=== PATIENT | female | born 1970 | race Caucasian/White ===

== ENCOUNTER 2017-10-11 11:55 | Inpatient (IN) | payer OTHER ==
[~2017-10-11] VITALS: Ht 167.6 cm; Wt 63.3 kg
[2017-10-11 12:00] VITALS: Ht 167.6 cm; Wt 63.3 kg
[2017-10-11] MEDS ORDERED: SOD CHLORIDE 0.9% 1,000 ML IV STA (12:48)
[2017-10-11 13:35] LABS: ABNORMAL IP MESSAGE 1; HEMATOCRIT 20.4 % (37.0-47.0); MEAN CORPUSCULAR HEMOGLOBIN 31.4 pg (29.0-33.0); MEAN CORPUSCULAR HGB CONC 31.9 g/dl (32.0-37.0); MEAN CORPUSCULAR VOLUME 98.6 fl (82.0-101.0); MEAN PLATELET VOLUME 9.6 fl (7.4-10.4); PLATELET COUNT 363 10^3/UL (140-415); RED BLOOD COUNT 2.07 10^6/ul (4.20-5.40); RED CELL DISTRIBUTION WIDTH 15.8 % (11.5-14.5); WHITE BLOOD COUNT 8.1 10^3/ul (4.8-10.8)
[2017-10-11 13:39] LABS: HEMOGLOBIN 6.5 g/dl (12.0-16.0); POSITIVE DIFF @See below
[2017-10-11 13:40] LABS: PATH REVIEW? YES
[2017-10-11 13:44] LABS: ADD UMIC YES; UR ASCORBIC ACID NEGATIVE (NEGATIVE); UR BACTERIA FEW /HPF (NONE SEEN); UR BILIRUBIN (Dip) NEGATIVE (NEGATIVE); UR BLOOD (Dip) 3+ mg/dL (NEGATIVE); UR CLARITY SLIGHTLY CLOUDY (CLEAR); UR COLOR YELLOW (YELLOW); UR GLUCOSE (Dip) NEGATIVE (NEGATIVE); UR KETONES (Dip) 1+ mg/dL (NEGATIVE); UR LEUKOCYTE ESTERASE (Dip) NEGATIVE Leu/ul (NEGATIVE); UR MUCUS FEW /HPF (NONE SEEN); UR NITRITE (Dip) NEGATIVE (NEGATIVE); UR RBC > 182 /HPF (0-5); UR SPECIFIC GRAVITY (Dip) 1.009 (1.003-1.030); UR SQUAMOUS EPITHELIAL CELL FEW /HPF (FEW); UR TOTAL PROTEIN (Dip) NEGATIVE (NEGATIVE); UR UROBILINOGEN (Dip) NEGATIVE (NEGATIVE)
--- NOTE | 2017-10-11 13:56 | RADRPT ---
PROCEDURE: US Pelvis. CLINICAL INDICATION: Vaginal bleeding. TECHNIQUE: The pelvis was evaluated with transabdominal and transvaginal sonography in the axial a nd sagittal planes. COMPARISON: None. FINDINGS: The uterus measures 11.3 x 7.8 x 8.8 cm. There is a heterogeneous mass in the region of the endometr ial canal measuring 6.4 x 6.3 x 4.6 cm in cranial caudal, AP, and transverse dimensions. There is no other uterine mass. There is no normal endometrium visualized. The ovaries are not visualized. Ther e is no other pelvic mass. A small amount of free fluid is present in the cul-de-sac. IMPRESSION: 1. Enlarged uterus with a large mass centrally. The mass may be due to a large fibroid or an endome trial neoplastic mass. Correlation with MRI of the pelvis should be considered. 2. Endometrium and ovaries not visualized. 3. Small amount of free fluid which may be physiologic. RPTAT: QQ .Marcin Horner MD, MD Date Time Electronically viewed and signed by .Marcin Horner MD, on 10/11/2017 13:56 .R/
[2017-10-11 14:21] LABS: ANISOCYTOSIS 1+ (0-0); BASOPHILS % (M) 1 % (0-2); MICROCYTOSIS 1+ (0-0); MONOCYTES % (M) 4 % (0-11); PLATELET ESTIMATE NORMAL; POLYCHROMASIA 1+ (0-0)
--- NOTE | 2017-10-11 14:41 | ERD ---
ER Documentation Chief Complaint Chief Complaint bright red vag bleeding, fibroids, H8.2, bleeding decrease. pt pale HPI 46-year-old female with history uterine fibroids present ED with excessive vaginal bleeding and pelvic pain 3 weeks. Patient was seen at [facility] ER 4 days ago when she was saturating 10 pounds plus heavy pad every 20 minutes. Her hemoglobin at that time was 8.2. She was prescribed control pills. She said the bleeding has slowed somewhat after that. She has been feeling weak and with difficult to concentrate recently. She had a near syncope this morning in the shower. Denies fever or chills. ROS All systems reviewed and are negative except as per history of present illness. Allergies Allergies: Coded Allergies: No Known Allergy (Unverified , 10/11/17) PMhx/Soc Hx Alcohol Use: Yes (SOCIALLY ) Hx Substance Use: No Hx Tobacco Use: Yes (QUITTED 1 YEAR AGO) Smoking Status: Current some day smoker Physical Exam Vitals Vital Signs Date Time Temp Pulse Resp B/P Pulse Ox O2 Delivery O2 Flow Rate FiO2 10/11/17 12:00 99.2 115 20 105/58 100 Physical Exam General: Well-developed, well-nourished, conscious and coherent. Skin: Pallor Head: Normocephalic without evidence of trauma Eyes: Sclera and conjunctivae normal; pupils equal, round, and reactive to light; extraocular movements are intact Chest: Normal AP diameter. Good expansion without retractions. Nontender. Lungs are clear to auscultate bilaterally with good tidal volume Heart: Regular rate with slight tachycardia. No murmur, rub, or gallops heard Abdomen: Soft and nontender without masses, guarding, or rebound. Bowel sounds are active. No hepatosplenomegaly Back: Without spinal or CVA tenderness Pelvis: Pubic tenderness Extremities: Full range of motion. Good strength bilaterally. No clubbing, cyanosis, or edema. Peripheral pulses are intact. Sensation intact Neuro: Alert and oriented 4, GCS 15. Cranial nerves grossly intact. Motor and sensory exams nonfocal. Moves all extremities. Speech clear. Gait normal Result Diagram: 10/11/17 1310 Results 24 hrs Laboratory Tests Test 10/11/17 13:10 White Blood Count 8.110^3/ul Red Blood Count 2.0710^6/ul Hemoglobin 6.5g/dl Hematocrit 20.4% Mean Corpuscular Volume 98.6fl Mean Corpuscular Hemoglobin 31.4pg Mean Corpuscular Hemoglobin Concent 31.9g/dl Red Cell Distribution Width 15.8% Platelet Count 32380^3/UL Mean Platelet Volume 9.6fl Neutrophils % % Segmented Neutrophils % (Manual) 77% Band Neutrophils % (Manual) 1% Lymphocytes % % Lymphocytes % (Manual) 17% Monocytes % % Monocytes % (Manual) 4% Eosinophils % % Basophils % % Basophils % (Manual) 1% Nucleated Red Blood Cells % 0.0/100WBC Neutrophils # 10^3/ul Neutrophils # (Manual) 6.210^3/ul Band Neutrophils # 0.010^3/ul Absolute Lymphocytes (Manual) 1.310^3/ul Lymphocytes # 10^3/ul Monocytes # 10^3/ul Absolute Monocytes (Manual) 0.310^3/ul Eosinophils # 10^3/ul Basophils # 10^3/ul Basophils # (Manual) 0.010^3/ul Nucleated Red Blood Cells # 10^3/ul Pathologist Review (Hematology) YES Platelet Estimate NORMAL Polychromasia 1+ Anisocytosis 1+ Microcytosis 1+ Urine Color YELLOW Urine Clarity SLIGHTLY CLOUDY Urine pH 5.0 Urine Specific [place] 1.009 Urine Ketones 1+mg/dL Urine Nitrite NEGATIVEmg/dL Urine Bilirubin NEGATIVEmg/dL Urine Urobilinogen NEGATIVEmg/dL Urine Leukocyte Esterase NEGATIVELeu/ul Urine Microscopic RBC > 182/HPF Urine Microscopic WBC 3/HPF Urine Squamous Epithelial Cells FEW/HPF Urine Bacteria FEW/HPF Urine Mucus FEW/HPF Urine Hemoglobin 3+mg/dL Urine Glucose NEGATIVEmg/dL Urine Total Protein NEGATIVEmg/dl Current Medications Medications (Trade) Dose Ordered Sig/Shirin Route PRN Reason Start Time Stop Time Status Last Admin Dose Admin Sodium Chloride (NS) 1,000 ml @ 1,000 mls/hr Q1H STAT IV 10/11/17 12:48 10/11/17 13:47 DC 10/11/17 13:33 PROCEDURE: US Pelvis. CLINICAL INDICATION: Vaginal bleeding. TECHNIQUE: The pelvis was evaluated with transabdominal and transvaginal sonography in the axial and sagittal planes. COMPARISON: None. FINDINGS: The uterus measures 11.3 x 7.8 x 8.8 cm. There is a heterogeneous mass in the region of the endometrial canal measuring 6.4 x 6.3 x 4.6 cm in cranial caudal, AP, and transverse dimensions. There is no other uterine mass. There is no normal endometrium visualized. The ovaries are not visualized. There is no other pelvic mass. A small amount of free fluid is present in the cul-de-sac. IMPRESSION: 1. Enlarged uterus with a large mass centrally. The mass may be due to a large fibroid or an endometrial neoplastic mass. Correlation with MRI of the pelvis should be considered. 2. Endometrium and ovaries not visualized. 3. Small amount of free fluid which may be physiologic. RPTAT: QQ .Marcin Horner MD, MD Date Time Electronically viewed and signed by .Marcin Horner MD, on 10/11/2017 13:56 .R/ CC: DAWOOD JORGENSEN. SCALEHOUSE ATTENDANT Procedures/MDM 46-year-old female with history of uterine fibroids presented ED with excessive vaginal bleeding and pallor. Patient had episode of near syncope this morning. Her hemoglobin today is 6.5. Type and screen and 1 unit of packed red blood cell is ordered for the patient. Patient also given 1 L normal saline fluids in the ED. Patient denies any pain at this time, analgesics is not given. Pelvic ultrasound showed a enlarged uterus with a large mass centrally. The mass may be due to a large fibroid or a endometrial neoplastic mass. Spoke with Dr. Palma, who agreed to accept the patient for admission if hospitalist does not want to be the primary. Patient's condition at this time: Stable. The case was reviewed and discussed with Dr. Abreu, who agrees with the plan of care. Disclaimer: Inadvertent spelling and grammatical errors are likely due to EHR/ dictation software use and do not reflect on the overall quality of patient care. Also, please note that the electronic time recorded on this note does not necessarily reflect the actual time of the patient encounter. Departure Diagnosis: Primary Impression: Anemia Anemia type: iron deficiency Iron deficiency anemia type: chronic blood loss Qualified Code: D50.0 - Iron deficiency anemia due to chronic blood loss Additional Impressions: Fibroids Uterine leiomyoma location: unspecified location Qualified Code: D25.9 - Uterine leiomyoma, unspecified location Excessive vaginal bleeding Condition: DAWOOD Corral NP Oct 11, 2017 14:40
[2017-10-11] MEDS ORDERED: SOD CHLORIDE 0.9% 1,000 ML IV ONE (15:30)
[2017-10-11] MEDS ORDERED: ACETAMINOPHEN 500 MG TAB PO STA (18:10)
[2017-10-11 18:19] VITALS: TEMP 98.4
--- NOTE | 2017-10-11 19:00 | QN ---
Documentation Comment I have seen and evaluated the patient along with the PA and/or DIRECTOR OF REGIONAL SALES provider. I agree with the evaluation and plan of care. Please see their documentation for full ER course and evaluation. Initial presentation: Old woman presents with 3 weeks of vaginal bleeding. Physical exam: GENERAL: Well-developed, well-nourished, well-hydrated, mild discomfort CARDIAC: Regular rate and rhythm, no murmurs rubs or gallops LUNGS: Clear bilaterally no wheezing crackles or stridor ABDOMEN: Soft nontender, no guarding, no rigidity, no rebound, no psoas sign no obturator sign. SKIN: Warm and dry to touch, no abrasions, contusions, or hematomas, no lacerations, no ecchymosis, no target lesions, and without ulcers Assessment and plan: Labs revealed severe anemia with a hemoglobin of 6.4, imaging revealed uterine fibroid. PRBC IV transfusion was started in the emergency department Diagnostic impression: Acute symptomatic anemia with symptomatic uterine fibroid Accepting care team and consultations: I discussed the current laboratory data, diagnostic imaging and emergency care provided. Admitting team: Dr. Palma Consulting services: Internal medicine as needed DEVYN RAYA MD Oct 11, 2017 19:00
--- NOTE | 2017-10-11 19:31 | QN ---
Documentation Comment 46 y.o with chronic menorrhagia presents with bleeding and weekness vss exam wn os no mass palpapated a/p 46 y.o with menorrhagia and hh6.5 us with 6 cm mass fibroid versus cancer transfuse will need dc/hysteroscopy when stable probably as outpatient will follow JAVED HERRING MD Oct 11, 2017 19:31
[2017-10-11 20:00] VITALS: BP 114/59; PULSE 87; RESP 18
[2017-10-12] VITALS (16 sets, daily range): BP systolic 92–113; BP diastolic 53–73; PULSE 69–101; RESP 12–26
[2017-10-12 00:59] LABS: HEMATOCRIT 20.2 % (37.0-47.0)
[2017-10-12 01:04] LABS: HEMOGLOBIN 6.6 g/dl (12.0-16.0)
[2017-10-12] MEDS ORDERED: FER325 PO (03:22)
[2017-10-12] MEDS ORDERED: NORE-120 PO (03:22)
[2017-10-12] MEDS: DEXTROSE 5%-LR 1,000 ML IV SCH ×3 (08:00→16:30)
[2017-10-12] MEDS ORDERED: INFLUENZA VIRUS VACCINE 0.5 ML SYG IM* ONE (09:00)
[2017-10-12] MEDS ORDERED: PROPOFOL 20 ML ONE (10:35)
[2017-10-12] MEDS ORDERED: MIDAZOLAM 1 MG/ML 2 ML INJ ONE (10:35)
[2017-10-12] MEDS ORDERED: FENTAnyl 50 MCG/ML VIAL ONE (10:35)
[2017-10-12] MEDS ORDERED: CEFAZOLIN 1 GM INJ ONE (10:50)
[2017-10-12] MEDS ORDERED: MEPERIDINE 25 MG INJ IV PRN (11:00)
[2017-10-12] MEDS ORDERED: morphine (1 MG/ML) 10ML SYRINGE IV PRN ×3 (11:00)
[2017-10-12] MEDS ORDERED: DIPHENHYDRAMINE 50 MG INJ IV PRN (11:00)
[2017-10-12] MEDS ORDERED: FENTAnyl 50 MCG/ML VIAL IV PRN ×2 (11:00)
[2017-10-12] MEDS ORDERED: ONDANSETRON 4 MG INJ IV PRN (11:00)
[2017-10-12] MEDS ORDERED: LABETALOL HCL 20MG INJ IV PRN (11:00)
[2017-10-12] MEDS ORDERED: OXYCODONE/ACETAMINOPHEN (5/325) TAB PO PRN (11:00)
[2017-10-12] MEDS ORDERED: EPHEDrine SULFATE 50 MG/5 ML SYG IV PRN (11:00)
[2017-10-12] MEDS ORDERED: DEXAMETHASONE 4 MG/ML 1 ML INJ ONE (11:03)
[2017-10-12] MEDS ORDERED: ONDANSETRON 4 MG INJ ONE (11:03)
[2017-10-12] MEDS ORDERED: METOCLOPRAMIDE 10 MG INJ ONE (11:03)
[2017-10-12] MEDS ORDERED: KETOROLAC 30 MG INJ ONE (11:03)
--- NOTE | 2017-10-12 11:32 | OPPN ---
Date/Time of Note Date/Time of Note DATE: 10/12/17 TIME: 11:30 Operative Report Planned Procedure Procedure date Oct 12, 2017 Procedure(s) D&C&Hysteroscopy and endometrial ablation Performed by see signature line Locker Room Manager none Anesthesiologist: CESAR CARLOS MD Pre-procedure diagnosis Severe Menorrhagia and Anemia Anesthesia Type: general Post-Procedure Post-procedure diagnosis same Thickened endometrium Findings Live Baby [], Apgars [] and [], weight [], position [], [] presentation []cord. Estimated Blood Loss: 0 - 10 mls Specimen(s) ECC,EMC Grafts/Implant(s) none Complication(s) none UMA DUMONT M.D. Oct 12, 2017 11:32
[2017-10-12] MEDS: FENTAnyl 50 MCG/ML VIAL IV PRN ×3 (11:53→12:11)
--- NOTE | 2017-10-12 12:21 | OPR ---
DATE OF OPERATION: 10/12/2017 PREOPERATIVE DIAGNOSIS: Severe menorrhagia with severe anemia. POSTOPERATIVE DIAGNOSIS: Severe menorrhagia with severe anemia. OPERATION PERFORMED: D and C and hysteroscopy, endometrial ablation with grecia ____. SURGEON: Dr. Kan. ANESTHESIOLOGIST: ____. ANESTHESIA: General. COMPLICATIONS: None. ESTIMATED BLOOD LOSS: Less than 10 mL. DESCRIPTION OF PROCEDURE: The patient was taken to the operating room where general anesthesia was found to be adequate. The patient was placed in dorsal lithotomy position. After prep and drape, a weighted speculum was placed inside the vaginal vault. Anterior lip of the cervix was grasped by s steve-tooth tenaculum. Cervix was dilated by Aguilar dilators, sharp curettage of endocervical cavity and then endometrial cavity was done. Tissues were sent to pathology separately. Then, grecia en dometrial applicator was inserted and endometrial ____ ablation was done in 10 minutes. Procedure w ent uncomplicated. Instruments were removed. Pictures were taken. There was no complication regar ding this procedure. The patient tolerated the procedure well and was transferred to recovery room in stable condition. There was no issue regarding this procedure. Dictated By: UMA BRUNNER/ROSALIND Conf#: [id number] DID#: [id number]
--- NOTE | 2017-10-12 12:27 | HP ---
DATE OF ADMISSION: 10/11/2017 HISTORY OF PRESENT ILLNESS: This is a 46-year-old with severe vaginal bleeding and anemia and histo ry of fibroid uterus. PAST MEDICAL HISTORY: Denies. PAST SURGICAL HISTORY: Breast implants. ALLERGIES: NKDA. PHYSICAL EXAMINATION: VITAL SIGNS: Stable. GENERAL: Normal. ABDOMEN: Soft, nontender. GENITAL: Cervix and vaginal cavity were normal. There was around 3-4 cystic clots in the vaginal v bubba. Hemoglobin was around 6. ASSESSMENT AND PLAN: Different options including medical versus surgical versus radiology opt ions discussed with the patient extensively. Patient does not need to have a hysterectomy or myomec laura at this time. Thermal endometrial ablation was suggested and risks and benefits discussed. Kt smalls understands that she would not be fertile after the procedure, although is possible and the ablation does not protect her against , possible incidental , but she may lose her fertility. The patient understands the concept. The patient understands that endometrial ablation might not be successful completely and in case of the failure, she needs another step, eith er hysterectomy or embolization radiologically. The patient signed the consent and was taken to the operating room. Dictated By: UMA BRUNNER/ROSALIND Conf#: [id number] DID#: [id number] CC: JAVED HERRING MD;*End*
[2017-10-12 14:49] LABS: BASOPHILS % 0.2 % (0.0-2.0); EOSINOPHILS % 0.1 % (0.0-7.0); HEMATOCRIT 30.3 % (37.0-47.0); HEMOGLOBIN 10.5 g/dl (12.0-16.0); LYMPHOCYTES # 0.7 10^3/ul (0.8-2.9); LYMPHOCYTES % 6.1 % (15.0-51.0); MEAN CORPUSCULAR HEMOGLOBIN 32.2 pg (29.0-33.0); MEAN CORPUSCULAR HGB CONC 34.7 g/dl (32.0-37.0); MEAN CORPUSCULAR VOLUME 92.9 fl (82.0-101.0); MEAN PLATELET VOLUME 9.9 fl (7.4-10.4); MONOCYTE # 0.1 10^3/ul (0.3-0.9); MONOCYTES % 1.2 % (0.0-11.0); NEUTROPHIL # 10.9 10^3/ul (1.6-7.5); NEUTROPHILS % 91.7 % (39.0-77.0); PLATELET COUNT 317 10^3/UL (140-415); RED BLOOD COUNT 3.26 10^6/ul (4.20-5.40); RED CELL DISTRIBUTION WIDTH 15.7 % (11.5-14.5); WHITE BLOOD COUNT 11.9 10^3/ul (4.8-10.8)
[2017-10-12] MEDS: IBUPROFEN 800 MG TAB PO PRN ×3 (15:15→23:20)
[2017-10-12 15:19] LABS: CALCIUM 8.5 mg/dl (8.4-10.2); CREATININE 0.66 mg/dl (0.44-1.00); POTASSIUM 3.8 mmol/L (3.5-5.1)
[2017-10-12 15:36] LABS: INR 1.07; PROTIME 13.9 Sec (12.2-14.2); PT RATIO 1.1
[2017-10-12 15:37] LABS: PARTIAL THROMBOPLASTIN TIME 26.9 Sec (25.0-35.0); THROMBIN TIME 13.6 SEC (13.8-19.1)
[2017-10-13 02:55] VITALS: BP 92/55; RESP 16
[2017-10-13 07:40] VITALS: BP 104/51; RESP 16
[2017-10-13] MEDS ORDERED: INFLUENZA VIRUS VACCINE 0.5 ML SYG IM* ONE (12:00)
--- NOTE | 2017-10-13 16:07 | PN ---
Date/Time of Note Date/Time of Note DATE: 10/13/17 TIME: 16:01 Assessment/Plan VTE Prophylaxis VTE Prophylaxis Intervention: ambulation Lines/Catheters [facility] Saline Lock Assessment/Plan Chief Complaint/Hosp Course Admitted for symptomatic anemia secondary to long-term menometrorrhagia Underwent D&C and hysteroscopy as well as endometrial ablation pathology pending Patient does not consider any future fertility She understands risk of after ambulation including risk of placental abnormality. Advised the patient to be seen by her annual PRESIDENT CELEBRITY ACQUISTION. She already has an appointment scheduled in October. Recommended the patient to have a follow-up with her pathology results at the time of D&C at her next visit. Obtain records from the hospital with her PRESIDENT CELEBRITY ACQUISTION to ensure that the pathology is benign. Recommended to have a screening mammogram. At this point recommended to use the contraception. Desires to use condoms. Also advised the patient to have a physical with her PCP. Needs to have her thyroid labs being checked to ensure that she does not have any thyroid abnormality that caused abnormal uterine bleeding. Patient verbalized understanding. All questions were answered. Recommended to take iron twice a day with a stool softener At this point can be discharged home. She is a stable Problems: Subjective 24 Hr Interval Summary Free Text/Dictation Denies any complaint. Feels much more energy. Vaginal bleeding scant. Denies any abdominal pain, abnormal vaginal discharge or any other symptoms. Happy with the procedure Constitutional: no complaints Eyes: no complaints ENT: no complaints Respiratory: no complaints Cardiovascular: no complaints Gastrointestinal: no complaints Genitourinary: bleeding Musculoskeletal: no complaints Skin: no complaints Neurologic: no complaints Endocrine: no complaints Lymphatic: no complaints Psychological: no complaints Immunologic: no complaints Exam/Review of Systems Vital Signs Vitals Vital Signs Date Time Temp Pulse Resp B/P Pulse Ox O2 Delivery O2 Flow Rate FiO2 10/13/17 07:40 98.5 70 16 104/51 96 10/12/17 12:26 Room Air 10/12/17 11:54 2.0 Intake and Output 10/12/17 10/12/17 10/13/17 15:00 23:00 07:00 Intake Total 2700 ml 1125 ml 700 ml Output Total 370 ml 0 ml 250 ml Balance 2330 ml 1125 ml 450 ml Exam Constitutional: alert, oriented, well developed Psych: nl mood/affect, no complaints Head: atraumatic, normocephalic Eyes: EOMI, nl conjunctiva Gastrointestinal: nl liver, spleen, non-tender, soft Extremities: normal pulses Neurological: MANUFACTURING QUALITY TECHNICIAN II-XII intact, nl mental status, nl speech, nl strength Results Result Diagram: 10/12/17 1405 10/12/17 1405 Results 24 hrs Laboratory Tests Test 10/13/17 06:35 Lab Scanned Report BLOOD TRANSFUSION MARY ESTRADA MD Oct 13, 2017 16:07
--- NOTE | 2017-10-13 16:13 | DS ---
Date/Time of Note Date/Time of Note DATE: 10/13/17 TIME: 16:10 Discharge Summary Admission/Discharge Info Admit Date/Time Oct 11, 2017 at 14:08 Discharge Date/Time Oct 13, 2017 at 12:25 Discharge Diagnosis Symptomatic anemia Metrorrhagia Patient Condition: Good Consults None Procedures 1. Dilatation and curettage 2. Endometrial ablation Hx of Present Illness 46-year-old female with history of long-term menometrorrhagia, presented to emergency room with symptomatic anemia. Her hemoglobin was noted to be 6.2. She underwent blood transfusion 3 units total. Had a pelvic ultrasound that showed an hypoechoic mass inside the uterine cavity questionable for blood clot versus fibroid. She underwent D&C as well as endometrial ablation. Risk and benefit of procedure had been discussed with primary surgeon to the patient. She verbalized understanding and did not consider in the future fertility. Postoperatively she did well. Her hemoglobin was a stable and increase with blood transfusion to 10. On postoperative day #1 patient was noted to be stable enough to be discharged home. She was ambulating. Asymptomatic. Denied any dizziness, lightheadedness, shortness of breath or chest pain or any other symptoms. Discussed with the patient importance of close follow-up with her annual HARVESTING MANAGER that she has already appointment in October for follow-up of the pathology obtained during D&C as well as workup for symptomatic anemia and menorrhagia. Cannot rule out thyroid dysfunction. Patient verbalized understanding. Contraception discussed and recommended due to risk of after endometrial ablation. Patient verbalized understanding and desires to use condoms at this time. All questions were answered. She was advised to take iron twice a day with stool softener. Hospital Course Admitted for symptomatic anemia secondary to long-term menometrorrhagia Underwent D&C and hysteroscopy as well as endometrial ablation pathology pending Patient does not consider any future fertility She understands risk of after ambulation including risk of placental abnormality. Advised the patient to be seen by her annual HARVESTING MANAGER. She already has an appointment scheduled in October. Recommended the patient to have a follow-up with her pathology results at the time of D&C at her next visit. Obtain records from the hospital with her HARVESTING MANAGER to ensure that the pathology is benign. Recommended to have a screening mammogram. At this point recommended to use the contraception. Desires to use condoms. Also advised the patient to have a physical with her PCP. Needs to have her thyroid labs being checked to ensure that she does not have any thyroid abnormality that caused abnormal uterine bleeding. Patient verbalized understanding. All questions were answered. Recommended to take iron twice a day with a stool softener At this point can be discharged home. She is a stable Home Meds Reported Medications Norethindrone-E.estradiol-Iron (Blisovi 24 Fe Tablet) 1 Each Tablet, 2 TAB PO DAILY, TAB 10/12/17 Ferrous Sulfate* (Ferrous Sulfate*) 325 Mg Tabec, 325 MG PO BID, TAB Take on an empty stomach 10/12/17 Follow-up Plan With her annual HARVESTING MANAGER in October 2017 Appointment already scheduled Per patient Primary Care Provider Willis Rodrigues MD Time spent on discharge: > 30 minutes Pending Labs Laboratory Tests Test 10/13/17 06:35 Lab Scanned Report BLOOD [id number] MARY ESTRADA MD Oct 13, 2017 16:13
== END 2017-10-13 12:25 | disposition home or self-care (01) | DRG 743 ==
LOC: FTE 11:55 → MS2 14:08
PROC: 30233N1 Transfusion of Nonautologous Red Blood Cells into Peripheral Vein, Percutaneous Approach (ICD-10-PCS; 2017-10-11)
PROC: 0UDB8ZX Extraction of Endometrium, Via Natural or Artificial Opening Endoscopic, Diagnostic (ICD-10-PCS; 2017-10-12)
PROC: 0U5B8ZZ Destruction of Endometrium, Via Natural or Artificial Opening Endoscopic (ICD-10-PCS; principal; 2017-10-12 11:00)
DX: N92.0 Excessive and frequent menstruation with regular cycle (principal); D50.0 Iron deficiency anemia secondary to blood loss (chronic)
CPT/HCPCS: 36430; 76830; 76856; 80048; 81001; 85014; 85018; 85025; 85049; 85610; 85670; 85730; 86850; 86900; 86901; 86920; 88305; 90686; J0690; J1100; J1885; J2175; J2250; J2405; J2765; J3010; J7030; J7121; P9016

== ENCOUNTER 2017-12-24 02:32 | Emergency (ER) | END 2017-12-24 07:23 | disposition home or self-care (01) ==

== ENCOUNTER 2018-03-06 12:16 | Inpatient (IN) | END 2018-03-07 18:05 | disposition home or self-care (01) | DRG 989 ==

== ENCOUNTER 2018-03-17 05:39 | Inpatient (IN) | END 2018-03-20 15:37 | disposition home or self-care (01) | DRG 743 ==